=== PATIENT | male | born 1990 | race Caucasian/White ===

== ENCOUNTER → 2018-09-01 | Outpatient (CLI) | payer OTHER | LOC: RAD 17:56 | DX: R07.81 Pleurodynia (principal) ==

== ENCOUNTER → 2021-05-26 | Outpatient (CLI) | payer OTHER ==
[2021-05-26 16:59] LABS: ALBUMIN 4.3 g/dL (3.5-5.0)
[2021-05-26 17:00] LABS: CALCIUM 9.4 mg/dL (8.3-10.5)
[2021-05-26 17:01] LABS: TOTAL PROTEIN 6.8 g/dL (6.4-8.3)
[2021-05-26 17:03] LABS: TOTAL BILIRUBIN 0.8 mg/dL (0.2-1.2)
== END ==
LOC: LAB 16:25
PROVIDERS: Family Medicine
DX: Z00.00 Encounter for general adult medical examination without abnormal findings (principal)

== ENCOUNTER → 2023-01-08 | Outpatient (CLI) | payer OTHER | LOC: LAB 09:05 | DX: J02.9 Acute pharyngitis, unspecified (principal) ==